=== PATIENT | female | born 1975 | race Caucasian/White ===

== ENCOUNTER → 2021-01-19 | Outpatient (CLI) | payer OTHER ==
[~2021-01-19] MED LIST: BUPR150T15 PO; ESCITALOPRAM OX10 MG PO; GADOTERATE 7.5 MMOL/15ML VIAL. IVP ONE
--- NOTE | 2021-01-19 12:45 | KCIC ---
EXAMINATION: MRI LEFT FEMUR WITHOUT AND WITH IV CONTRAST CLINICAL HISTORY: Incidental left femoral lesion on outside knee radiographs TECHNIQUE: Multiplanar multisequential images obtained through the left femur without intravenous con trast. COMPARISON: None FINDINGS: 0.5 x 1.1 x 2.3 cm (AP x TRV x CC) eccentric lesion in the posterior mid femoral diaphysis with quest ionable extension to the cortex proximally and distally. The lesion demonstrates irregular sclerotic margins, intermediate to mildly increased T1 signal, increased T2 signal, and contrast enhancement. O verlying cortex within normal limits. Cortical thickening and small bony excrescence along the hl7 interface developer ior femoral diaphysis extending proximally from this level along the adductor randa insertion and or igin of the short head biceps femoris muscle, compatible with chronic reactive changes. Mild edema and enhancement in the proximal short head biceps femoris muscle near the origin, compatib le with mild muscle strain. Muscles and tendons otherwise within normal limits. No suspicious soft ti ssue contrast enhancement. IMPRESSION: Nonspecific 2.3 cm lesion in the mid femoral diaphysis as described, possibly a tug lesion or healing fibroxanthoma. Mild short head biceps femoris muscle strain with adjacent chronic bony reactive changes as described . Electronically signed by: Raghav Dove DO (01/19/2021 12:43 PM) [id number]
--- NOTE | 2021-01-19 13:01 | KCIC ---
EXAMINATION: MRI LEFT KNEE WITHOUT IV CONTRAST CLINICAL HISTORY: Left anterior knee pain around patella since . TECHNIQUE: Multiplanar multisequential images obtained through the knee without intravenous contrast. COMPARISON: None FINDINGS: MENISCI: Medial Meniscus: Incomplete radial tear in the posterior horn. Tear in the body with small flap displ aced into the inferior meniscal gutter and truncation and extrusion of the residual body. Lateral Meniscus: Intact. LIGAMENTS: ACL: Intact PCL: Intact MCL: Intact LCL Complex: Intact CARTILAGE: Medial Femoral Condyle: Small area(s) of low grade (less than 50% thickness) partial thickness cartil age loss and or fissuring Medial Tibial Plateau: Normal Lateral Femoral Condyle: Normal Lateral Tibial Plateau: Normal Patella: Large area(s) of predominantly high grade (greater than 50% thickness) cartilage loss and or fissuring with smaller area(s) of full thickness cartilage loss and or fissuring, predominantly in t he medial facet Trochlea: Large area(s) of predominantly high grade (greater than 50% thickness) cartilage loss and o r fissuring with smaller area(s) of full thickness cartilage loss and or fissuring, in the inferior m edial trochlea TENDONS: Distal quadriceps and patellar tendons intact. Popliteus tendon intact. BONES AND MARROW: 1.1 cm round T2 hyperintense lesion in the posterior proximal tibial metaphysis wit h thin tract extending to the cortex at the PCL tibial attachment, strongly suggesting an intraosseou s ganglion. No evidence of acute fracture. MUSCLES: Muscle bulk and signal intensity within normal limits. JOINT FLUID AND SYNOVIUM: Small joint effusion. No synovitis. No Weaver's cyst. IMPRESSION: Medial meniscus tearing with small displaced flap and extrusion of the body as described. Moderate chondral wear in the medial patellofemoral compartment as described. Probable 1.1 cm intraosseous ganglion at the PCL tibial attachment. Electronically signed by: Raghav Dove DO (01/19/2021 12:59 PM) [id number]
== END ==
LOC: KCIC MRI 07:53
PROVIDERS: ATTEND Family Medicine
DX: S83.242A Other tear of medial meniscus, current injury, left knee, initial encounter (principal); S46.212A Strain of muscle, fascia and tendon of other parts of biceps, left arm, initial encounter; M25.462 Effusion, left knee; X58.XXXA Exposure to other specified factors, initial encounter; Y93.89 Activity, other specified; Y92.89 Other specified places as the place of occurrence of the external cause; Y99.8 Other external cause status
CPT/HCPCS: 73720; 73721; A9575